=== PATIENT | female | born 1955 | race African-American/Black ===

== ENCOUNTER 2018-03-20 08:15 | Outpatient (CLI) | payer MEDICARE, MEDICAID | END 2018-03-20 08:16 | disposition home or self-care (01) | LOC: BICULT 08:15 | PROVIDERS: ATTEND Internal Medicine Gastroenterology | DX: N85.8 Other specified noninflammatory disorders of uterus (principal); R59.0 Localized enlarged lymph nodes | CPT/HCPCS: 76856 ==

== ENCOUNTER 2018-04-14 09:41 | Outpatient (CLI) | payer MEDICARE, MEDICAID | END 2018-04-14 09:42 | disposition home or self-care (01) | LOC: BICRAD 09:41 | PROVIDERS: ATTEND Internal Medicine | DX: M47.892 Other spondylosis, cervical region (principal); M48.02 Spinal stenosis, cervical region | CPT/HCPCS: 72040 ==

== ENCOUNTER 2018-04-28 21:25 | Emergency (ER) | payer MEDICARE, MEDICAID ==
--- NOTE | 2018-04-29 08:11 | CT ---
CT PELVIS NONCONTRAST: Date: 04/28/18 Time: 2312 hours HISTORY: 62-year-old female with acute traumatic pelvic and left hip pain after fall. FINDINGS: There is no free fluid within the pelvic cavity. There is a suture line at the sigmoid colon. No larg e extrapelvic hematoma identified. The proximal 3/4 of the femurs were included. There is no fracture from the femoral heads to the distal metadiaphyses. IMPRESSION: 1. No fracture. 2. Surgical anastomosis at the sigmoid colon. POS: [facility]
== END 2018-04-29 00:48 | disposition home or self-care (01) ==
LOC: ERS 21:25
DX: S70.01XA Contusion of right hip, initial encounter (principal); G43.909 Migraine, unspecified, not intractable, without status migrainosus; E78.5 Hyperlipidemia, unspecified; I10 Essential (primary) hypertension; F17.210 Nicotine dependence, cigarettes, uncomplicated; W11.XXXA Fall on and from ladder, initial encounter
CPT/HCPCS: 72192

== ENCOUNTER 2019-01-29 09:19 | Outpatient (CLI) | payer MEDICARE, MEDICAID ==
--- NOTE | 2019-01-29 10:03 | ULT ---
PELVIC ULTRASOUND: Date: 01/29/19 Transabdominal ultrasound of pelvis performed. INDICATION: Pelvic pain. FINDINGS: The patient is post hysterectomy over 2 years ago. The right ovary is identified. There is a right ovarian cyst identified which measures 2.0 x 2.5 cm. Both ovaries are otherwise unremarkable. Color Doppler and spectral analysis demonstrates blood flow to both ovaries. IMPRESSION: Small right ovarian cyst is identified. Patient declined endovaginal exam. POS: [facility]
== END 2019-01-29 09:20 | disposition home or self-care (01) ==
LOC: BICULT 09:19
PROVIDERS: ATTEND Internal Medicine
DX: R10.2 Pelvic and perineal pain (principal); N83.201 Unspecified ovarian cyst, right side
CPT/HCPCS: 76856; 93976

== ENCOUNTER 2019-07-27 07:38 | Outpatient (CLI) | payer MEDICARE, MEDICAID ==
--- NOTE | 2019-07-27 09:09 | CT ---
CT Abdomen Pelvis W Con: 07/27/2019 12:00 AM CLINICAL INFORMATION: Left lower quadrant abdominal pain COMPARISON: 11/14/2015 TECHNIQUE: Multiple contiguous axial images were obtained and a CT of the abdomen and pelvis with IV contrast. Oral contrast was administered. Coronal and sagittal reformats were performed. FINDINGS: Lower Chest: Bilateral breast implants. Abdomen: Liver: Subcentimeter hypodensity near the dome in the left lobe may represent a small cyst. Bile Ducts: Normal caliber. Gallbladder: No calcified gallstones. Normal caliber wall. Pancreas: within normal limits. Spleen: within normal limits. Adrenals: within normal limits. Kidneys: within normal limits. Pelvis: Reproductive Organs: Status post hysterectomy. A tubular structure persists along the right pelvic si dewall and may represent the patient's right fallopian tube. Ureters: within normal limits. Bladder: within normal limits. Peritoneum: No ascites or free air, no fluid collection. Bowel: Normal caliber. Mesentery and Retroperitoneum: No enlarged mesenteric or retroperitoneal lymph nodes. Vessels: Atherosclerotic calcifications. Abdominal Wall: within normal limits. Bones: Degenerative changes in the spine. IMPRESSION: No evidence of acute intraabdominal or pelvic abnormality.
[2019-07-27] MEDS ORDERED: Iopamidol 370 76% 100 ML VIAL ONE (12:58)
== END 2019-07-27 07:39 | disposition home or self-care (01) ==
LOC: CT 07:38
PROVIDERS: ATTEND Physician Assistant Medical
DX: K92.1 Melena (principal); N83.209 Unspecified ovarian cyst, unspecified side; R10.32 Left lower quadrant pain
CPT/HCPCS: 74177; 82565; Q9967

== ENCOUNTER 2019-10-23 09:04 | Outpatient (CLI) | payer MEDICARE, MEDICAID ==
--- NOTE | 2019-10-23 09:40 | CT ---
EXAM: CT chest without contrast PROVIDED CLINICAL HISTORY: History of smoking, screening COMPARISON: None FINDINGS: Vascular calcifications noted. The heart, pericardium and great vessels are suboptimally evaluated in the absence of IV contrast but demonstrate an otherwise unremarkable unenhanced CT appearance. There is no evidence for thoracic lymph node enlargement. The airway appears patent and of normal aki iber. No pleural fluid, pleural thickening or pneumothorax apparent. The lungs are free of significant opacity. The visualized portions of the upper abdomen appear unremarkable. The osseous structures demonstrate no concerning lytic or blastic lesions. IMPRESSION: Lung RADS category 1-negative. Continue annual screening.
== END 2019-10-23 09:05 | disposition home or self-care (01) ==
LOC: CT 09:04
PROVIDERS: ATTEND Internal Medicine
DX: F17.210 Nicotine dependence, cigarettes, uncomplicated (principal)
CPT/HCPCS: G0297

== ENCOUNTER 2019-10-25 13:39 | Emergency (ER) | payer MEDICARE, MEDICAID ==
[~2019-10-25 13:39] MED LIST: Iopamidol-370 76% 500 ML 1 ML ONE
[2019-10-25 14:46] LABS: #Basophils 0.1 thou/uL (0.0-0.2); #Eosinphils 0.1 thou/uL (0.0-0.7); #Lymphocytes 2.4 thou/uL (1.20-3.40); #Monocytes 0.6 thou/uL (0.11-0.59); #Neutrophils 4.1 thou/uL (1.40-6.50); %Basophils 0.9 % (0.0-1.0); %Eosinophils 1.4 % (0.0-10.0); %Lymphocytes 33.5 % (21.0-51.0); %Monocytes 7.9 % (0.0-10.0); %Neutrophils 56.3 % (42.0-75.0); Hemoglobin 15.1 g/dL (12.0-16.0); Mean Corpuscular HGB CONC 33.1 g/dL (32.0-36.0); Mean Corpuscular Volume 90.6 fL (78.0-98.0); Mean Platelet Volume 9.1 fL (7.4-10.4); Platelet Count 180 thou/uL (130-400); RBC Distribution Width 13.2 % (11.5-14.5); Red Blood Cell (RBC) Count 5.04 mill/uL (4.20-5.40); White Blood Cell (WBC) Count 7.3 thou/uL (4.8-10.8)
[2019-10-25 15:07] LABS: ALT (SGPT) 13 U/L (8-55); AST (SGOT) 17 U/L (5-34); Albumin 4.6 g/dL (3.4-4.8); Alkaline Phosphatase 94 U/L (40-110); Anion Gap 13 mmol/L (10-20); BUN (Urea Nitrogen) 14 mg/dL (9.8-20.1); Bilirubin, Total 0.4 mg/dL (0.2-1.2); Calc. Creatinine Clearance 0 mL/min (70-130); Calcium 9.6 mg/dL (7.8-10.44); Carbon Dioxide 28 mmol/L (23-31); Chloride 105 mmol/L (98-107); Estimated GFR-MDRD 86; Globulin 3.1 g/dL (2.4-3.5); Glucose 94 mg/dL (80-115); Lipase 42 U/L (8-78); Potassium 3.5 mmol/L (3.5-5.1); Protein, Total 7.7 g/dL (6.0-8.3); Sodium 142 mmol/L (136-145)
--- NOTE | 2019-10-25 16:26 | CT ---
CT OF ABDOMEN AND PELVIS PERFORMED WITH CONTRAST ENHANCEMENT: History: Abdominal pain, bloody stool. Comparison: 07-27-19 FINDINGS: The lung bases are clear of any infiltrative process. Bilateral breast augmentation is noted. The liver and spleen show no focal abnormalities. Exam was taken in somewhat arterial phase but there is suggestion of maybe some element of fatty change to the liver. Spleen, pancreas, and gallbladder regions all appear unremarkable. Right and left adrenal glands and right and left kidneys are normal in appearance. There is no signif icant periaortic or mesenteric lymphadenopathy. Colonic diverticulosis is noted. No inflammatory proc ess. CT OF PELVIS PERFORMED WITH CONTRAST ENHANCEMENT: An anastomotic suture line in the rectosigmoid region is noted. There is no adenopathy or mass. Appendix is difficult to definitively visual but I see no evidence for appendicitis. IMPRESSION: 1. Mild colonic diverticulosis. 2. No acute abnormalities of the abdomen or pelvis. POS: [facility]
[2019-10-25 16:36] LABS: Bilirubin Negative (Negative); Blood, Urine Trace (Negative); Clarity Clear (Clear); Glucose, Urine (Dipstick) Normal (Negative); Leukocyte Negative Leu/uL (Negative); Nitrite Negative (Negative); Protein, Urine (Dipstick) Negative (Neg-Trace); Urobilinogen Normal mg/dL (Less than 2); WBC/HPF 0-3 HPF (0-3)
[2019-10-25 16:44] LABS: Bacteria/HPF 1+ HPF (None Seen)
== END 2019-10-25 17:02 | disposition home or self-care (01) ==
LOC: ERS 13:39
DX: K92.2 Gastrointestinal hemorrhage, unspecified (principal); I10 Essential (primary) hypertension; E78.5 Hyperlipidemia, unspecified; E78.00 Pure hypercholesterolemia, unspecified; F17.210 Nicotine dependence, cigarettes, uncomplicated
CPT/HCPCS: 74177; 80053; 81003; 81015; 83690; 85025; 87086; Q9967

== ENCOUNTER 2019-10-26 09:18 | Outpatient (CLI) | payer MEDICARE, MEDICAID ==
--- NOTE | 2019-10-26 12:18 | BD ---
DEXA DENSITOMETRY: INDICATIONS: A 64-year-old female, postmenopausal osteoporosis screening. FINDINGS: LUMBAR SPINE BMD (g/cm2) T-SCORE L1 1.039 0.4 L2 1.073 0.4 L3 1.077 -0.1 L4 1.139 0.7 TOTAL 1.082 0.3 FEMORAL NECK 0.705 -1.3 TOTAL 0.923 -0.2 Femoral neck density from 04/22/2015 recorded at 0.586. TEN YEAR FRACTURE RISK: Major osteoporotic fracture: 22% Hip fracture: 2.6% IMPRESSION: 1. The bone mineral density of the lumbar spine is within the normal range. 2. The bone mineral density of the femoral neck indicates osteopenia. POS: [facility]
--- NOTE | 2019-10-30 13:41 | MMO ---
Bilateral MAMMO Bilat Screen [facility]INICI[facility]. CLINICAL HISTORY: Patient is 64 years old and is seen for screening. The patient has no family history of breast cancer. The patient has no personal history of cancer. VIEWS: The views performed were: bilateral craniocaudal with tomosynthesis and bilateral mediolateral oblique with tomosynthesis. FILMS COMPARED: The present examination has been compared to prior imaging studies performed at [facility] on 06/11/2016, 07/23/2017 and 08/14/2018. This study has been interpreted with the assistance of computer-aided detection. MAMMOGRAM FINDINGS: There are scattered fibroglandular densities. Finding 1: Normal implants are present. Finding 2: There are stable benign appearing calcifications seen in both breasts. There are no suspicious masses, suspicious calcifications, or new areas of architectural distortion. IMPRESSION: THERE IS NO MAMMOGRAPHIC EVIDENCE OF MALIGNANCY. A ROUTINE FOLLOW-UP MAMMOGRAM IN 1 YEAR IS RECOMMENDED. THE RESULTS OF THIS EXAM WERE SENT TO THE PATIENT. ACR BI-RADS Category 2 - Benign finding MAMMOGRAPHY NOTE: 1. A negative mammogram report should not delay a biopsy if a dominant of clinically suspicious mass is present. 2. Approximately 10% to 15% of breast cancers are not detected by mammography. 3. Adenosis and dense breasts may obscure an underlying neoplasm. Reported by: SHANNON VELAZQUEZ MD Electonically Signed: [id number]
== END 2019-10-26 09:19 | disposition home or self-care (01) ==
LOC: BICMAMMO 09:18
PROVIDERS: ATTEND Internal Medicine
DX: Z12.31 Encounter for screening mammogram for malignant neoplasm of breast (principal); Z13.820 Encounter for screening for osteoporosis; N95.1 Menopausal and female climacteric states; M85.859 Other specified disorders of bone density and structure, unspecified thigh
CPT/HCPCS: 77063; 77067; 77080

== ENCOUNTER 2020-01-12 09:41 | Outpatient (CLI) | payer MEDICARE, MEDICAID ==
--- NOTE | 2020-01-12 11:14 | MMO ---
Right Breast MAMMO Unilat Diag DDI RT+[facility]INICIUS. CLINICAL HISTORY: Patient is 64 years old and is seen for diagnostic exam and palpable abnormality in the left breast. The patient has no family history of breast cancer. The patient has no personal history of cancer. The patient has a history of bilateral Implants. VIEWS: The views performed were: right craniocaudal with tomosynthesis; right mediolateral oblique with tomosynthesis; and right mediolateral with tomosynthesis. FILMS COMPARED: The present examination has been compared to prior imaging studies performed at [facility] on 10/26/2019 and 01/12/2020, and at [facility] on 07/23/2017 and 08/14/2018. This study has been interpreted with the assistance of computer-aided detection. MAMMOGRAM FINDINGS: The breast is heterogeneously dense, which could obscure a lesion on mammography. There is a focal asymmetry seen in the upper-outer region of the right breast. In region of palpable finding IMPRESSION: FOCAL ASYMMETRY IN THE RIGHT BREAST IS SUSPICIOUS. AN ULTRASOUND-GUIDED BREAST BIOPSY IS RECOMMENDED. ABNORMAL SOLID MASS ON ULTRASOUND. THE RESULTS OF THIS EXAM WERE SENT TO THE PATIENT. ACR BI-RADS Category 4 - Suspicious abnormality - biopsy should be considered MAMMOGRAPHY NOTE: 1. A negative mammogram report should not delay a biopsy if a dominant of clinically suspicious mass is present. 2. Approximately 10% to 15% of breast cancers are not detected by mammography. 3. Adenosis and dense breasts may obscure an underlying neoplasm. Reported by: CECILIA SCRUGGS MD Electonically Signed: [id number]
--- NOTE | 2020-01-12 12:03 | ULT ---
RIGHT BREAST ULTRASOUND: HISTORY: The patient presents with a palpable finding. FINDINGS: The right breast is evaluated in the region of 9 o'clock approximately 3 cm from the nipple with atte nuation to a palpable finding. There is an irregular-shaped somewhat bilobed solid hypoechoic mass w ith some associated vascularity measuring approximately 1 x 1.4 x 2.3 cm in size. This has a suspici ous appearance. Right axilla region was evaluated. There is a 0.9 x 1.9 cm diameter lymph node with a more normal-appearing thin cortex and a large fatty hilum. IMPRESSION: Irregular-shaped somewhat bilobed solid suspicious mass at 9 o'clock 3 cm from the nipple correspondi ng to the palpable finding. BIRADS category 4, suspicious finding. The patient has been scheduled f or an ultrasound-guided biopsy after discussing this finding with the patient. Additional, Dr. Lopez has been notified. CODE CR
== END 2020-01-12 09:42 | disposition home or self-care (01) ==
LOC: BICMAMMO 09:41
PROVIDERS: ATTEND Internal Medicine
DX: N63.11 Unspecified lump in the right breast, upper outer quadrant (principal)
CPT/HCPCS: 76642; 77065; G0279

== ENCOUNTER → 2020-01-22 | Day surgery (SDC) | payer MEDICARE, MEDICAID ==
--- NOTE | 2020-01-22 13:39 | MMO ---
Right Breast MAMMO Unilat Diag DDI RT. CLINICAL HISTORY: Patient is 64 years old and is seen for diagnostic exam. The patient has a history of bilateral Implants. VIEWS: The views performed were: . FILMS COMPARED: The present examination has been compared to prior imaging studies performed at [facility] on 10/26/2019 and 01/12/2020, and at [facility] on 08/14/2018. This study has been interpreted with the assistance of computer-aided detection. MAMMOGRAM FINDINGS: The breast is heterogeneously dense, which could obscure a lesion on mammography. There is a new biopsy clip seen in the right breast. No mammographic abnormality is evident to correspond to the ultrasound finding. IMPRESSION: NEW BIOPSY CLIP IN THE RIGHT BREAST IS CONFIRMED UTILIZING POST PROCEDURE MAMMOGRAM. THE RESULTS OF THIS EXAM WERE SENT TO THE PATIENT. MAMMOGRAPHY NOTE: 1. A negative mammogram report should not delay a biopsy if a dominant of clinically suspicious mass is present. 2. Approximately 10% to 15% of breast cancers are not detected by mammography. 3. Adenosis and dense breasts may obscure an underlying neoplasm. Reported by: SHANNON VELAZQUEZ MD Electonically Signed: [id number]
--- NOTE | 2020-01-22 14:47 | ULT ---
ULTRASOUND GUIDED RIGHT BREAST BIOPSY: DATE: 01/22/2020. PROVIDED CLINICAL HISTORY: Right breast mass. FINDINGS: Informed consent was obtained from the patient. 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 Review of the ultrasound examination of 01/12/2020 was performed. Th e 9 o'clock right breast mass previously discovered on ultrasound and without mammographic abnormalit y was localized. The skin overlying this region was prepped and draped in the usual sterile manner. Soft tissues were infiltrated with 1% buffered Lidocaine. Under continuous sonographic guidance, 3 core samples of the lesion were obtained. Subsequently, continuous sonographic guidance was utilized to deploy a biopsy site marker within the mass. [place] were withdrawn and hemostasis achieved. No immediate complications. Post biopsy mammogram demonstrates biopsy clip in place at the 9 o'clock p osition of the right breast. IMPRESSION: Technically successful ultrasound-guided right breast biopsy. Please correlate with histology result s to follow. POS: [facility]
== END ==
LOC: BICULT 12:48
PROVIDERS: ATTEND Internal Medicine
PROC: 0H9T3ZX Drainage of Right Breast, Percutaneous Approach, Diagnostic (ICD-10-PCS; principal; 2020-01-22)
DX: C50.811 Malignant neoplasm of overlapping sites of right female breast (principal); Z17.0 Estrogen receptor positive status [ER+]
CPT/HCPCS: 19083; 88305; 88341; 88342; 88361

== ENCOUNTER 2020-10-02 12:36 | Emergency (ER) | payer MEDICARE, MEDICAID ==
[2020-10-02] MEDS ORDERED: Morphine 2 MG/ML VIAL ONE (13:10)
[2020-10-02] MEDS ORDERED: Morphine 4 MG/ML VIAL ONE (13:10)
[2020-10-02] MEDS ORDERED: Ondansetron PF 4 MG/2 ML Vial ONE (13:10)
[2020-10-02 13:14] LABS: #Eosinphils 0.1 thou/uL (0.0-0.7); #Lymphocytes 0.8 thou/uL (1.20-3.40); #Monocytes 0.6 thou/uL (0.11-0.59); #Neutrophils 5.1 thou/uL (1.40-6.50); %Basophils 0.7 % (0.0-1.0); %Eosinophils 1.1 % (0.0-10.0); %Lymphocytes 11.7 % (21.0-51.0); %Monocytes 9.2 % (0.0-10.0); %Neutrophils 77.3 % (42.0-75.0); Hemoglobin 13.8 g/dL (12.0-16.0); Mean Corpuscular HGB CONC 32.6 g/dL (32.0-36.0); Mean Corpuscular Hemoglobin 29.7 pg (27.0-31.0); Mean Corpuscular Volume 90.9 fL (78.0-98.0); Mean Platelet Volume 8.6 fL (7.4-10.4); Platelet Count 155 thou/uL (130-400); RBC Distribution Width 14.3 % (11.5-14.5); Red Blood Cell (RBC) Count 4.67 mill/uL (4.20-5.40); White Blood Cell (WBC) Count 6.6 thou/uL (4.8-10.8)
--- NOTE | 2020-10-02 13:19 | RAD ---
EXAM: Single view of the chest HISTORY: Chest discomfort COMPARISON: 07/05/2012 FINDINGS: Single view of the chest shows a normal sized cardiomediastinal silhouette. There is no manny dence of consolidation, mass, or pleural effusion. Degenerative changes and scoliotic curvature the spine are seen. IMPRESSION: No evidence of acute cardiopulmonary disease
[2020-10-02 13:28] LABS: ALT (SGPT) 7 U/L (8-55); AST (SGOT) 13 U/L (5-34); Albumin 4.3 g/dL (3.4-4.8); Alkaline Phosphatase 87 U/L (40-110); Anion Gap 14 mmol/L (10-20); BUN (Urea Nitrogen) 18 mg/dL (9.8-20.1); Bilirubin, Total 0.3 mg/dL (0.2-1.2); Calc. Creatinine Clearance 0 mL/min (70-130); Calcium 9.7 mg/dL (7.8-10.44); Carbon Dioxide 29 mmol/L (23-31); Chloride 104 mmol/L (98-107); Estimated GFR-MDRD 50; Globulin 3.4 g/dL (2.4-3.5); Glucose 163 mg/dL (80-115); Potassium 3.5 mmol/L (3.5-5.1); Protein, Total 7.7 g/dL (6.0-8.3); Sodium 143 mmol/L (136-145)
[2020-10-02] MEDS ORDERED: Ketorolac Tromethamine 30 MG/ML VIAL ONE (14:22)
== END 2020-10-02 15:55 | disposition home or self-care (01) ==
LOC: ERS 12:36
DX: G62.82 Radiation-induced polyneuropathy (principal); Z79.899 Other long term (current) drug therapy; Z79.891 Long term (current) use of opiate analgesic; Z79.82 Long term (current) use of aspirin; G43.909 Migraine, unspecified, not intractable, without status migrainosus; E78.5 Hyperlipidemia, unspecified; I10 Essential (primary) hypertension; E78.00 Pure hypercholesterolemia, unspecified; F17.210 Nicotine dependence, cigarettes, uncomplicated
CPT/HCPCS: 71045; 80053; 84484; 85025; 93005; 96374; 96375; 99285; J2270; J1885; J2405

== ENCOUNTER 2021-05-25 14:34 | Outpatient (CLI) | payer MEDICARE, OTHER | END 2021-05-25 14:35 | disposition home or self-care (01) | LOC: BICMAMMO 14:34 | PROVIDERS: ATTEND Internal Medicine Hematology & Oncology | DX: Z08 Encounter for follow-up examination after completed treatment for malignant neoplasm (principal); M85.851 Other specified disorders of bone density and structure, right thigh; M85.852 Other specified disorders of bone density and structure, left thigh; T38.6X5A Adverse effect of antigonadotrophins, antiestrogens, antiandrogens, not elsewhere classified, initial encounter; Z85.3 Personal history of malignant neoplasm of breast | CPT/HCPCS: 77065; 77080; G0279 ==

== ENCOUNTER 2022-05-15 12:43 | Outpatient (CLI) | payer OTHER, MEDICAID | END 2022-05-15 12:44 | disposition home or self-care (01) | LOC: BICMRI 12:43 | PROVIDERS: ATTEND Orthopaedic Surgery Hand Surgery | DX: S63.592A Other specified sprain of left wrist, initial encounter (principal); M19.042 Primary osteoarthritis, left hand ==

== ENCOUNTER 2022-05-30 14:08 | Outpatient (CLI) | payer OTHER, MEDICAID | END 2022-05-30 14:09 | disposition home or self-care (01) | LOC: BICMAMMO 14:08 | PROVIDERS: ATTEND Internal Medicine Hematology & Oncology | DX: Z13.820 Encounter for screening for osteoporosis (principal); M85.851 Other specified disorders of bone density and structure, right thigh; M85.852 Other specified disorders of bone density and structure, left thigh; Z90.11 Acquired absence of right breast and nipple; Z85.3 Personal history of malignant neoplasm of breast | CPT/HCPCS: 77065; 77080; G0279 ==

== ENCOUNTER 2022-06-16 14:27 | Emergency (ER) | payer MEDICARE, MEDICAID | END 2022-06-16 16:22 | disposition home or self-care (01) | LOC: ERS 14:27 | DX: J01.90 Acute sinusitis, unspecified (principal); I10 Essential (primary) hypertension; E78.5 Hyperlipidemia, unspecified; F17.210 Nicotine dependence, cigarettes, uncomplicated; C50.919 Malignant neoplasm of unspecified site of unspecified female breast | CPT/HCPCS: 36416; 99283 ==

== ENCOUNTER 2023-01-28 10:01 | Outpatient (CLI) | payer OTHER, MEDICAID | END 2023-01-28 10:02 | disposition home or self-care (01) | LOC: MRI 10:01 | PROVIDERS: ATTEND Orthopaedic Surgery Hand Surgery | DX: M50.10 Cervical disc disorder with radiculopathy, unspecified cervical region (principal); M47.22 Other spondylosis with radiculopathy, cervical region | CPT/HCPCS: 72141 ==

== ENCOUNTER 2023-02-13 12:08 | Outpatient (CLI) | payer OTHER | END 2023-02-13 12:09 | disposition home or self-care (01) | LOC: RAD 12:08 | PROVIDERS: ATTEND Internal Medicine | DX: R06.00 Dyspnea, unspecified (principal) | CPT/HCPCS: 71046 ==

== ENCOUNTER 2023-06-11 08:59 | Outpatient (CLI) | payer OTHER, MEDICAID | END 2023-06-11 09:00 | disposition home or self-care (01) | LOC: BICMAMMO 08:59 | PROVIDERS: ATTEND Internal Medicine Hematology & Oncology | DX: Z13.820 Encounter for screening for osteoporosis (principal); C50.811 Malignant neoplasm of overlapping sites of right female breast; M81.0 Age-related osteoporosis without current pathological fracture; M85.80 Other specified disorders of bone density and structure, unspecified site; T38.6X5A Adverse effect of antigonadotrophins, antiestrogens, antiandrogens, not elsewhere classified, initial encounter | CPT/HCPCS: 77065; 77080; G0279 ==

== ENCOUNTER 2023-10-21 13:28 | Outpatient (CLI) | payer OTHER | END 2023-10-21 13:29 | disposition home or self-care (01) | LOC: RAD 13:28 | PROVIDERS: ATTEND Internal Medicine | DX: R06.00 Dyspnea, unspecified (principal); J98.11 Atelectasis; M41.9 Scoliosis, unspecified; I70.0 Atherosclerosis of aorta | CPT/HCPCS: 71046 ==

== ENCOUNTER 2024-04-22 12:54 | Outpatient (CLI) | payer OTHER, MEDICAID | END 2024-04-22 12:55 | disposition home or self-care (01) | LOC: BICULT 12:54 | PROVIDERS: ATTEND Internal Medicine | DX: R10.11 Right upper quadrant pain (principal) | CPT/HCPCS: 76700 ==

== ENCOUNTER 2024-08-18 10:39 | Outpatient (CLI) | payer OTHER, MEDICAID | END 2024-08-18 10:40 | disposition home or self-care (01) | LOC: BICULT 10:39 | PROVIDERS: ATTEND Physician Assistant Medical | DX: R10.13 Epigastric pain (principal); K80.20 Calculus of gallbladder without cholecystitis without obstruction | CPT/HCPCS: 76705 ==

== ENCOUNTER 2025-05-04 08:52 | Outpatient (CLI) | payer OTHER, MEDICAID | END 2025-05-04 08:53 | disposition home or self-care (01) | LOC: ULT 08:52 | PROVIDERS: ATTEND Specialist | DX: K82.4 Cholesterolosis of gallbladder (principal); K82.8 Other specified diseases of gallbladder | CPT/HCPCS: 76705 ==

== ENCOUNTER 2025-09-01 13:17 | Outpatient (CLI) | payer OTHER, MEDICAID | END 2025-09-01 13:18 | disposition home or self-care (01) | LOC: BICCT 13:17 | PROVIDERS: ATTEND Internal Medicine | DX: Z12.2 Encounter for screening for malignant neoplasm of respiratory organs (principal); F17.218 Nicotine dependence, cigarettes, with other nicotine-induced disorders; J44.9 Chronic obstructive pulmonary disease, unspecified; R91.1 Solitary pulmonary nodule | CPT/HCPCS: 71271 ==

== ENCOUNTER 2025-09-29 13:41 | Outpatient (CLI) | payer OTHER, MEDICAID | END 2025-09-29 13:42 | disposition home or self-care (01) | LOC: BICMAMMO 13:41 | PROVIDERS: ATTEND Internal Medicine Hematology & Oncology | DX: M81.8 Other osteoporosis without current pathological fracture (principal); C50.811 Malignant neoplasm of overlapping sites of right female breast; M85.851 Other specified disorders of bone density and structure, right thigh; M85.852 Other specified disorders of bone density and structure, left thigh | CPT/HCPCS: 77080 ==